=== PATIENT | female | born 1930 | race Caucasian/White ===

== ENCOUNTER 2017-02-12 13:31 | Emergency (ER) | payer MEDICARE ==
[~2017-02-12 13:31] MED LIST: CALTRA600D PO; CENTRUM TAB1 TAB PO; CLARIT10 PO; DITRO5 PO; MACROBID PO; NORV5 PO
== END 2017-02-12 17:51 | disposition home or self-care (01) ==
LOC: ER 13:31
DX: S09.90XA Unspecified injury of head, initial encounter (principal); M25.551 Pain in right hip; I10 Essential (primary) hypertension; Z87.891 Personal history of nicotine dependence; I48.91 Unspecified atrial fibrillation; Z79.899 Other long term (current) drug therapy; W19.XXXA Unspecified fall, initial encounter
CPT/HCPCS: 70450; 72100; 73502-RT; 99284